=== PATIENT | male | born 1995 | race Caucasian/White ===

== ENCOUNTER 2025-01-10 13:13 | Emergency (ER) | payer MEDICAID, SELFPAY ==
[2025-01-10 13:15] VITALS: BMI 18.6
[2025-01-10 13:26] VITALS: BP 151/101; PULSE 79; RESP 20; TEMP 36.7; O2SAT 98
--- NOTE | 2025-01-10 13:33 | XR_ITS ---
Examination: Left hand 2 views Technique one AP lateral left hand 2 views Date and time: January 10, 2025 1336 hours INDICATIONS: Injured the hand 2 days ago, hand pain. FINDINGS: No acute fracture No dislocation No foreign body IMPRESSION: No acute fracture
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
[2025-01-10] MEDS: IBUPROFEN TAB 400 MG TABLET 800 MG PO (14:07)
[2025-01-10] MEDS: DIPHTH,PERTUSS(ACELL),TET VAC 0.5 ML SYR- ADULT IMi (14:09)
== END 2025-01-10 14:55 | disposition home or self-care (01) ==
LOC: SERX 15:02
PROVIDERS: Emergency Provider Family Medicine
DX: S61.412A Laceration without foreign body of left hand, initial encounter (principal); X58.XXXA Exposure to other specified factors, initial encounter
CPT/HCPCS: 73120; 90471; 90715; 99283; A9270